=== PATIENT | female | born 1975 | race Caucasian/White ===

== ENCOUNTER 2024-12-02 20:48 | Emergency (ER) | payer BC, SELFPAY ==
[2024-12-02 20:52] VITALS: BP 142/116
[2024-12-02 21:14] LABS: % Basophils 0.6 % (0-2); % Eosinophils 5.8 % (0-6); % Immature Granulocytes 0.6 % (0-0.5); % Lymphocytes 12.7 % (20.5-51.1); % Monocytes 7.1 % (1.7-9.3); % Neutrophils 73.2 % (42.2-75.2); Absolute Basophils 0.1 10^3/uL (0-0.2); Absolute Eosinophils 0.7 10^3/uL (0-0.7); Absolute Immature Granulocytes 0.1 10^3/uL (0-0.05); Absolute Lymphocytes 1.5 10^3/uL (1.2-3.4); Absolute Monocytes 0.8 10^3/uL (0.1-0.6); Absolute Neutrophils 8.7 10^3/uL (1.4-6.5); Hematocrit 37.1 % (37.0-47.0); Hemoglobin 12.4 g/dL (12.0-16.0); Mean Corp Hgb Conc. 33.4 g/dL (33.0-37.0); Mean Corpuscular Hgb 29.4 pg (27.0-31.0); Mean Corpuscular Volume 87.9 fL (81.0-99.0); Mean Platelet Volume 9.8 fL (7.4-10.4); Nucleated Red Blood Cells % 0 %; Platelet Count 324 10^3/uL (130-400); Red Blood Cell Count 4.22 10^6/uL (4.20-5.40); Red Cell Dist. Width 14.7 % (11.5-14.5); White Blood Cell Count 11.9 10^3/uL (4.8-10.8)
[2024-12-02 21:24] LABS: APTT 27.8 Sec (23.4-35.0)
[2024-12-02 21:28] LABS: ALT (SGPT) 17 U/L (0-35); AST (SGOT) 21 U/L (14-36); Albumin 4.1 g/dl (3.5-5.0); Alkaline Phosphatase 96 U/L (38-126); Blood Urea Nitrogen 19 mg/dl (7-17); Calcium 9.8 mg/dl (8.4-10.2); Carbon Dioxide 25 mmol/L (22-30); Chloride 109 mmol/L (98-107); Glucose 111 mg/dl (70-99); Potassium 3.9 mmol/L (3.5-5.1); Sodium 143 mmol/L (135-145); Total Bilirubin 0.6 mg/dl (0.2-1.3); Total Protein 7.1 g/dl (6.3-8.2); eGFR > 60.00
[2024-12-02 21:35] VITALS: BMI 50.7
[2024-12-02 21:40] LABS: NT-proBNP 123 pg/ml; Troponin I < 0.012 ng/ml
[2024-12-02] MEDS: ATIVAN 0.5 MG PO (22:22)
[2024-12-02 23:28] VITALS: BP 144/82
--- NOTE | 2024-12-03 00:35 | ED.GENMED ---
History of Present Illness
General
Chief Complaint: Breathing Problem
Source: patient
Exam Limitations: none
Time Seen by Provider: 12/02/24 21:22
History of Present Illness
History of Present Illness:
49-year-old female complaining of shortness of breath and right-sided pleuritic pain. Has been there for weeks. Progressive. Seem to start after a bronchoscopy. History of asthma and scleroderma. No fever. No hemoptysis.
Past History
Past History
ED Past Medical History: Asthma, HTN (started on Lisinopril 05/2017), Hypothyroidism (diagnosed 4 weeks ago and started on Synthroid) and Other (Scleroderma)
Social History
Tobacco: Smoker
Personal: Single
Employment: Employed
Review of Systems
Review of Systems
All Other Systems: Not applicable
Constitutional: Denies fever
Respiratory: Denies hemoptysis
ABD/GI: Reports no symptoms
Phy Exam
Physical Exam
Physical Exam:
GENERAL: Alert and oriented in no apparent distress
EYE: Orbits normal.
NECK: Supple, no significant adenopathy.
ENT: Pharynx without erythema
CARDIAC: Regular rate and rhythm without any obvious murmurs.
LUNGS: No respiratory distress. No wheezing. Mild rhonchi right base
ABDOMEN: Soft, without focal tenderness or distention
NEUROLOGICAL: Alert and oriented , grossly non-focal
SKIN: Warm and dry, no rash or lesion, no discoloration, skin intact.
MUSCULOSKELETAL: No edema,no deformity.Good color
PSYCH: Normal and appropriate interaction.
Scores
Heart Failure Risk
Heart Failure Risk Score: Not Applicable
Course
Orders/Labs/Results
Orders:
Orders
12/02/24 20:55
ECG [Electrocardiogram (*1)] Urgent
Reason for Study: Shortness of Breath
EKG- Treatment ONCE
12/02/24 21:02
Comprehensive Metabolic Panel Urgent
NT-proBNP Urgent
PTT Urgent
Troponin I Urgent
12/02/24 21:03
Complete Blood Count/With Diff Urgent
12/02/24 21:21
CXR Port [CR Chest Portable - 1 View] Urgent
Comment:
Reason For Exam: sob
Reason Study Needs to be Portable: Patient Unstable
12/02/24 22:01
CT Chest PE Study Urgent
Comment:
Reason For Exam: sob
12/02/24 22:13
Lorazepam [Ativan] 0.5 mg PO NOW STA
12/03/24 00:34
Doxycycline [Vibramycin] 100 mg PO NOW STA
Prednisone [Deltasone] 50 mg PO NOW STA
Abnormal Lab Results
12/02/24 12/02/24
21:02 21:03
WBC 11.9 H 10^3/uL
(4.8-10.8)
RDW 14.7 H %
(11.5-14.5)
Abs Immat Gran (auto) 0.1 H 10^3/uL
(0-0.05)
Absolute Neuts (auto) 8.7 H 10^3/uL
(1.4-6.5)
Absolute Monos (auto) 0.8 H 10^3/uL
(0.1-0.6)
Immature Gran % 0.6 H %
(0-0.5)
Lymphocytes % 12.7 L %
(20.5-51.1)
Chloride 109 H mmol/L
(98-107)
BUN 19 H mg/dl
(7-17)
Glucose 111 H mg/dl
(70-99)
12/02/24 21:03
12/02/24 21:02
Vital Signs
Initial and Last Documented VS:
Initial Vital Signs
Temp Pulse Resp BP Pulse Ox
98.1 F 92 20 142/116 98
12/02/24 20:52 12/02/24 20:52 12/02/24 20:52 12/02/24 20:52 12/02/24 20:52
Last Documented Vital Signs
Temp Pulse Resp BP Pulse Ox
98.1 F 84 22 144/82 94
12/02/24 20:52 12/02/24 23:28 12/02/24 23:28 12/02/24 23:28 12/02/24 23:28
MDM/Problems Addressed
Differential Diagnosis Includes:
Patient with recent bronchoscopy. Underlying asthma and lung disease. Pleuritic right-sided chest pain with a family history of PE. Workup is unremarkable for PE significant pneumonia. Patient is not in heart failure. This is not a cardiac
issue. Atelectasis pleurisy small effusion. Will do a course of prednisone doxycycline and follow-up. Copy of report given to patient. She has a appointment with her director industrial relations this Tuesday
*Radiology
Radiology exam reviewed: radiology read reviewed (CT scan shows atelectasis at both lung bases. No pulmonary emboli. Small effusion at the right base.)
*Pulse Oximetry
Patient hypoxic: no
*EKG
Interpreted by ED Provider?: Yes
Interpretation: abnormal
Comparison EKG: changes noted
Heart Rate: 88
Rate: normal
Rhythm: sinus
[place]: normal axis
Interval: normal interval
QRS Pattern: normal QRS
Ischemia: other (Biatrial enlargement)
*Critical Care Note
Total Time (30-74mins, 75-104mins- exclusive of procedures): Not Applicable
Data Reviewed
Review of Other/Old Records Reveals: Labs and Testing
ED Attending Note
-
Portions of this chart may have been created with voice recognition software.� Occasional wrong word or��sound alike� substitutions may have occurred due to the inherent limitations of voice recognition software.
Discharge Plan
Departure
Patient Disposition: Home (Routine Discharge)
Date of Disposition: 12/03/24
Time of Disposition: 00:37
Patient with high blood pressure during this ER visit?: Yes
Discharge Problem:
Pleuritic right-sided chest pain, Right pleural effusion, Atelectasis right base, History of asthma
Instructions: Shortness of Breath (Dyspnea) (DC), Pleuritic Chest Pain ED, Pleural effusion - Discharge instructions
Prescriptions:
New
doxycycline hyclate 100 mg capsule
100 mg PO BID 10 Days Qty: 20 0RF
prednisone 10 mg tablet
10 mg PO DAILY Qty: 20 0RF
Rx Instructions:
4 tablets day 1. Then 1 less tablet every other day until gone
No Action
albuterol sulfate [Ventolin HFA] 90 MCG/PUFF HFA aerosol inhaler
1 - 2 puff inhalation Q4HPRN PRN (Reason: wheezing) Qty: 1 2RF
ibuprofen [Advil] 200 MG tablet
200 mg PO PRN PRN (Reason: fever)
levothyroxine 25 MCG tablet
25 mcg PO DAILY
lisinopril 10 MG tablet
10 mg PO DAILY
Referrals:
Rhoda Beltran CRNP [Family Provider] - Follow up in 2-3 days
Activity Restrictions/Additional Instructions:
Follow-up closely with your primary physician and director industrial relations
Interventions
Interventions:
*Risk Screen - Suicide Last Done: 12/02/24 21:35
*General Assessment Last Done: 12/02/24 20:52
*Neglect/Abuse Screening Last Done: 12/02/24 21:35
*ED- Fall Risk Assessment Last Done: 12/02/24 21:35
*ED COVID-19 Vaccine History Last Done: 12/02/24 21:35
ED- Cardiac Assessment Last Done: 12/02/24 21:35
ED- Pulmonary Assessment Last Done: 12/02/24 21:35
Discharge Date and Time
Print Language: PASHTO
[2024-12-03] MEDS: DELTASONE 50 MG PO (00:58)
[2024-12-03] MEDS: VIBRAMYCIN 100 MG PO (00:58)
== END 2024-12-03 01:05 | disposition home or self-care (01) ==
LOC: EMR 20:48
PROVIDERS: Emergency Medicine; EMERGENCY PHYSICIAN Emergency Medicine; FAMILY PHYSICIAN Nurse Practitioner Acute Care
DX: R07.81 Pleurodynia (principal); J90 Pleural effusion, not elsewhere classified; J98.11 Atelectasis; J45.909 Unspecified asthma, uncomplicated; I10 Essential (primary) hypertension; E03.9 Hypothyroidism, unspecified; F17.200 Nicotine dependence, unspecified, uncomplicated; Z79.899 Other long term (current) drug therapy
CPT/HCPCS: 99285; 71045; 71275; 80053; 83880; 84484; 85025; 85730; 93005; Q9967

== ENCOUNTER → 2025-05-07 10:08 | Outpatient (REF) | payer BC, SELFPAY | LOC: HWRCS 10:08 | PROVIDERS: ATTENDING PHYSICIAN Internal Medicine; FAMILY PHYSICIAN Nurse Practitioner Acute Care | DX: M34.9 Systemic sclerosis, unspecified (principal) | CPT/HCPCS: 93306 ==